=== PATIENT | male | born 1950 | race Caucasian/White ===

== ENCOUNTER 2016-03-22 14:53 | Emergency (ER) | payer OTHER ==
[~2016-03-22] VITALS: Ht 175.3 cm; Wt 110.0 kg
[2016-03-22 16:01] VITALS: Ht 175.3 cm; Wt 110.0 kg
[2016-03-22] MEDS ORDERED: ONDANSETRON 4 MG INJ IV STA (21:15)
[2016-03-22] MEDS ORDERED: SOD CHLORIDE 0.9% 1,000 ML IV STA (21:15)
[2016-03-22] MEDS ORDERED: FAMOTIDINE 20 MG INJ IV STA (21:15)
[2016-03-22 21:41] VITALS: BP 137/80; PULSE 88; RESP 18; TEMP 98.1
[2016-03-22 21:50] LABS: POTASSIUM 4.1 mmol/L (3.5-5.1)
[2016-03-22 21:52] LABS: CREATININE 0.89 mg/dl (0.61-1.24)
[2016-03-22 21:53] LABS: ALBUMIN/GLOBULIN RATIO 1.21; BILIRUBIN,INDIRECT 0.3 mg/dl (0-1.1); BILIRUBIN,TOTAL 0.3 mg/dl (0.2-1.3); CALCIUM 8.4 mg/dl (8.4-10.2); TOTAL PROTEIN 7.3 g/dl (6.1-8.1)
[2016-03-22 21:58] LABS: ADD UMIC NO; URINE BILIRUBIN (Dip) NEGATIVE (NEGATIVE); URINE BLOOD (Dip) NEGATIVE (NEGATIVE); URINE COLOR YELLOW (YELLOW); URINE GLUCOSE (Dip) NEGATIVE (NEGATIVE); URINE KETONES (Dip) NEGATIVE (NEGATIVE); URINE LEUKOCYTE ESTERASE (Dip) NEGATIVE (NEGATIVE); URINE NITRITE (Dip) NEGATIVE (NEGATIVE); URINE TOTAL PROTEIN (Dip) NEGATIVE (NEGATIVE); URINE UROBILINOGEN (Dip) 1.0 E.U./dL (0.1-1.0)
[2016-03-22 22:00] LABS: BASOPHILS % 0.3 % (0.0-2.0); EOSINOPHILS # 0.1 10^3/ul (0.0-0.5); EOSINOPHILS % 1.5 % (0.0-7.0); HEMATOCRIT 45.7 % (42.0-52.0); HEMOGLOBIN 15.5 g/dl (14.0-18.0); LYMPHOCYTES # 2.2 10^3/ul (0.8-2.9); LYMPHOCYTES % 25.9 % (15.0-51.0); MEAN CORPUSCULAR HEMOGLOBIN 31.4 pg (29.0-33.0); MEAN CORPUSCULAR HGB CONC 33.9 g/dl (32.0-37.0); MEAN CORPUSCULAR VOLUME 92.5 fl (82.0-101.0); MEAN PLATELET VOLUME 10.6 fl (7.4-10.4); MONOCYTE # 0.8 10^3/ul (0.3-0.9); MONOCYTES % 9.7 % (0.0-11.0); NEUTROPHIL # 5.3 10^3/ul (1.6-7.5); NEUTROPHILS % 62.6 % (39.0-77.0); PLATELET COUNT 202 10^3/UL (140-440); RED BLOOD COUNT 4.94 10^6/ul (4.70-6.10); RED CELL DISTRIBUTION WIDTH 14.6 % (11.5-14.5); UNCORRECTED WBC 8.4 10^3/ul (4.8-10.8); WHITE BLOOD COUNT 8.4 10^3/ul (4.8-10.8)
[2016-03-22 22:01] LABS: CONDITION 1; LH ANALYZER COMMENTS 1
[2016-03-22] MEDS ORDERED: MECL-77 PO (22:03)
[2016-03-22] MEDS ORDERED: SIMV20TA PO (22:04)
[2016-03-22] MEDS ORDERED: IBUP800T25 PO (22:04)
--- NOTE | 2016-03-22 22:21 | ERD ---
ER Documentation Chief Complaint Date/Time DATE: 03/22/16 TIME: 22:19 Chief Complaint EPIGASTRIC PAIN,NAUSEA,VOMTTING,DIARRHEA X 3 DAYS HPI This is a 65-year-old male presents to the emergency room with a chief complaint of abdominal cramping, nausea, vomiting and diarrhea for the past 3 days. This patient does state that he ate bad seafood and states that his diarrhea is watery, nonbloody emesis or diarrhea. The patient localizes his cramping all over the abdomen. He is not taking any medication and came to the ER today for evaluation. ROS All systems reviewed and are negative except as per history of present illness. Medications Home Meds Reported Medications Simvastatin* (Zocor*) 20 Mg Tablet, 20 MG PO QHS, #30 TAB 03/22/16 Ibuprofen* (Ibuprofen*) 800 Mg Tab, 800 MG PO TID, TAB 03/22/16 Meclizine Hcl* (Meclizine Hcl*) 25 Mg Tablet, 25 MG PO TID, TAB 03/22/16 Allergies Allergies: Coded Allergies: No Known Allergies (Verified Allergy, Unknown, 03/22/16) PMhx/Soc History of Surgery: Yes (BOTH EYES, CATARACT SURGERY) Anesthesia Reaction: No Hx Neurological Disorder: No Hx Respiratory Disorders: No Hx Cardiac Disorders: No Hx Psychiatric Problems: No Hx Miscellaneous Medical Probl: No Hx Alcohol Use: Yes (once a week) Hx Substance Use: No Hx Tobacco Use: No Smoking Status: Never smoker Physical Exam Vitals Vital Signs Date Time Temp Pulse Resp B/P Pulse Ox O2 Delivery O2 Flow Rate FiO2 03/22/16 21:41 98.1 88 18 137/80 97 Room Air 03/22/16 16:01 98.1 78 18 122/65 Physical Exam INITIAL VITAL SIGNS: Reviewed by me GENERAL: The patient is well developed and appropriate for usual state of health in no apparent distress HEENT: Pupils equal, round, and reactive to light. EOMI. There is no scleral icterus. NECK: C-spine is soft and supple, there is no meningismus. There is no cervical lymphadenopathy. LUNGS: Clear to auscultation bilaterally. There are no rales, wheezes or rhonchi. HEART: Regular rate and rhythm, no murmurs, clicks, rubs or gallops. ABDOMEN: Epigastric tenderness to palpation, negative Beltran sign, otherwise soft, non-tender, non-distended. There are bowel sounds in all four quadrants. No rebound or guarding. EXTREMITIES: There is no peripheral cyanosis or edema. No focal swelling or erythema. NEUROLOGICAL: The patient moves all four extremities with 5/5 strength. Cranial nerves II - XII are intact. Normal gait. Alert and oriented SKIN: There is no apparent rash or petechiae. HEME/LYMPHATIC: There is no evidence of excessive bruising or lymphedema. PSYCHIATRIC: The patient does not appear anxious or depressed. Result Diagram: 03/22/16211903/22/162119 Results 24 hrs Laboratory Tests Test 03/22/16 21:00 03/22/16 21:20 Urine Bilirubin NEGATIVE Urine Clarity SLIGHTLY CLOUDY Urine Color YELLOW Urine Glucose NEGATIVE% Urine Hemoglobin NEGATIVE Urine Ketones NEGATIVE Urine Leukocyte Esterase NEGATIVE Urine Nitrite NEGATIVE Urine Specific Laura 1.025 Urine Total Protein NEGATIVE Urine Urobilinogen 1.0 E.U./dL Urine pH 5.0 Alanine Aminotransferase (ALT/SGPT) 29IU/L Albumin 4.0g/dl Albumin/Globulin Ratio 1.21 Alkaline Phosphatase 65IU/L Anion Gap 16 Aspartate Amino Transf (AST/SGOT) 24IU/L Basophils # 0.010^3/ul Basophils % 0.3% Blood Morphology Comment Blood Urea Nitrogen 14mg/dl Calcium Level 8.4mg/dl Carbon Dioxide Level 27mmol/L Chloride Level 103mmol/L Creatinine 0.89mg/dl Direct Bilirubin 0.00mg/dl Eosinophils # 0.110^3/ul Eosinophils % 1.5% Globulin 3.30g/dl Glucose Level 100mg/dl Hematocrit 45.7% Hemoglobin 15.5g/dl Indirect Bilirubin 0.3mg/dl Lipase 43U/L Lymphocytes # 2.210^3/ul Lymphocytes % 25.9% Mean Corpuscular Hemoglobin 31.4pg Mean Corpuscular Hemoglobin Concent 33.9g/dl Mean Corpuscular Volume 92.5fl Mean Platelet Volume 10.6fl Monocytes # 0.810^3/ul Monocytes % 9.7% Neutrophils # 5.310^3/ul Neutrophils % 62.6% Nucleated Red Blood Cells # 0.010^3/ul Nucleated Red Blood Cells % 0.0/100WBC Platelet Count 46218^3/UL Potassium Level 4.1mmol/L Red Blood Count 4.9410^6/ul Red Cell Distribution Width 14.6% Sodium Level 142mmol/L Total Bilirubin 0.3mg/dl Total Protein 7.3g/dl White Blood Count 8.410^3/ul Current Medications Medications (Trade) Dose Ordered Sig/[place] Route PRN Reason Start Time Stop Time Status Last Admin Dose Admin Sodium Chloride (NS) 1,000 ml @ 1,000 mls/hr Q1H STAT IV 03/22/16 21:15 03/22/16 22:14 DC 03/22/16 21:37 Ondansetron HCl (Zofran Inj) 4 mg ONCE STAT IV 03/22/16 21:15 03/22/16 21:16 DC 03/22/16 21:36 Famotidine (Pepcid Iv) 20 mg ONCE STAT IV 03/22/16 21:15 03/22/16 21:16 DC 03/22/16 21:36 Procedures/MDM This 65-year-old male presents to the ER for evaluation of abdominal cramping, nausea, vomiting and diarrhea after eating bad seafood approximately 3 days ago. The patient states that his vomiting has subsided. His diarrhea has become less frequent. The patient did have lab work drawn to assess for electrolyte abnormalities. A urinalysis is also normal. This patient is in no acute distress after receiving Pepcid in the emergency room. He will be discharged home at this time with a prescription for Pepcid, Zofran. Advised him his symptoms are likely secondary to colitis from irritation. Departure Diagnosis: Primary Impression: Nausea vomiting and diarrhea Additional Impression: Abdominal cramps Condition: Stable BHAVANA GARCIA DO Mar 22, 2016 22:21
[2016-03-22] MEDS ORDERED: FAMO-18 PO (22:22)
[2016-03-22] MEDS ORDERED: ONDA4TAB8 PO (22:22)
== END 2016-03-22 22:36 | disposition home or self-care (01) ==
LOC: E/R 14:53
DX: R11.2 Nausea with vomiting, unspecified (principal); R10.84 Generalized abdominal pain; R19.7 Diarrhea, unspecified
CPT/HCPCS: 36415; 80053; 81003; 83690; 85025; 96374; 96375; J2405; J7030; Z7502; Z7610